=== PATIENT | female | born 1985 | race Caucasian/White ===

== ENCOUNTER → 2024-11-23 | Outpatient (CLI) | payer BC ==
--- NOTE | 2024-11-23 08:39 | MM ---
Reason for Exam: Screening (asymptomatic). Baseline mammogram. Patient History: Menarche at age 12. Patient has no children. Last menstrual period: 11/23/2024 Risk Values: Margy 5 year model risk: 0.6%. NCI Lifetime model risk: 11.1%. Prior Study Comparison: Patient's first Mammogram. Tissue Density: The breasts are heterogeneously dense, which may obscure small masses. Findings: Analyzed By CAD. There is no suspicious group of microcalcifications or suspicious mass in either breast. Overall Assessment: Negative, BI-RAD 1 Management: Screening Mammogram of both breasts in 1 year. Some advise annual bilateral breast ultrasound surveillance in patient's with background dense tissue. Patient should continue monthly self-breast exams. A clinical breast exam by your physician is recommended on an annual basis. This exam should not preclude additional follow-up of suspicious palpable abnormalities. Note on Margy scores and lifetime risk: 1. A Margy score greater than 3% is considered moderate risk. If this is the case, consider specialist referral to assess eligibility for a risk reducing agent. 2. If overall lifetime risk for the development of breast cancer is 20% or higher, the patient may qualify for future screening with alternating mammogram and breast MRI. [facility], , 11/23/2024 8:36 AM. Electronically signed and approved by: Harman Myrick M.D.
== END | disposition home or self-care (01) ==
LOC: RADMAMWWP 07:05
DX: Z12.31 Encounter for screening mammogram for malignant neoplasm of breast (principal); R92.323 Mammographic fibroglandular density, bilateral breasts
CPT/HCPCS: 77063; 77067